=== PATIENT | male | born 1970 | race Caucasian/White ===

== ENCOUNTER 2018-11-03 20:15 | Emergency (ER) | payer BC ==
[~2018-11-03] VITALS: Ht 177.8 cm; Wt 72.6 kg
--- NOTE | 2018-11-03 21:50 | NUR ---
PT BIBS D/T C/O OF RT EYE IRRITATION AFTER DOG BUMPED INTO RT EYE, NO REDNESS OR VISIBLE INJURY NOTED, BUT C/O BLURRY VISION, VS STABLE PAIN OF 3/10, WITH STABLE GAIT, PLACED ON ER BED 1, SEEN AND EVAL DONE ER MD BECERRA.
[2018-11-03] MEDS ORDERED: TETRACAINE HCL/PF 0.5% UD 2 ML BOTTLE ONE (22:17)
[2018-11-03] MEDS ORDERED: TETRACAINE HCL/PF 0.5% UD 2 ML BOTTLE OP ONE (22:30)
--- NOTE | 2018-11-03 22:56 | NUR ---
Patient discharged to home in stable condition. Written and verbal after care instructions given with rx. Patient verbalizes understanding of instruction.
[2018-11-03 22:57] VITALS: BP 131/82
== END 2018-11-03 22:58 | disposition home or self-care (01) ==
LOC: ER 20:17
DX: S05.01XA Injury of conjunctiva and corneal abrasion without foreign body, right eye, initial encounter (principal); G35 Multiple sclerosis; Z88.8 Allergy status to other drugs, medicaments and biological substances; W22.8XXA Striking against or struck by other objects, initial encounter; Y93.59 Activity, other involving other sports and athletics played individually; Y92.39 Other specified sports and athletic area as the place of occurrence of the external cause; Y99.8 Other external cause status
CPT/HCPCS: 99283; A4606